=== PATIENT | male | born 1995 | race American Indian/Alaskan Native ===

== ENCOUNTER 2019-09-04 08:39 | Emergency (ER) | payer SELFPAY ==
--- NOTE | 2019-09-04 08:58 | Event Note ---
ED Screening Note ED Screening Note: flank pain hematuria yesterday never had before no dysuria no penile discharge no pain or edema in the testicles no PMHx allergy ibuprofen This initial assessment/diagnostic orders/clinical plan/treatment(s) is/are subject to change based on patients health status, clinical progression and re-assessment by fellow clinical providers in the ED. Further treatment and workup at subsequent clinical providers discretion. Patient/guardian urged not to elope from the ED as their condition may be serious if not clinically assessed and managed. Initial orders include: labs, UA
[2019-09-04 09:26] LABS: Hemoglobin 15.1 gm/dl (11.8-15.2); Mean Corpuscular HGB Conc 34 % (32-34); Mean Corpuscular Volume 92 fl (84-94); Red Blood Count 4.88 M/mm3 (3.65-5.03); Red Cell Distribution Width 13.2 % (13.2-15.2)
[2019-09-04 09:29] LABS: Platelet Count 82 K/mm3 (140-440)
[2019-09-04 09:35] LABS: Eosinophils # (Auto) 0.3 K/mm3 (0.0-0.4); Eosinophils % (Auto) 6.5 % (0.0-4.3); Monocytes # (Auto) 0.4 K/mm3 (0.0-0.8); Monocytes % (Auto) 9.4 % (0.0-7.3)
[2019-09-04 09:46] LABS: Alanine Aminotransferase 6 units/L (7-56); Albumin 4.6 g/dL (3.9-5); BUN/Creatinine Ratio 12; Blood Urea Nitrogen 13 mg/dL (9-20); Calcium 9.6 mg/dL (8.4-10.2); Hemolysis Index 9
[2019-09-04] MEDS ORDERED: MORPHINE 4 MG/1 ML INJ IV ONE (09:51)
[2019-09-04] MEDS ORDERED: SODIUM CHLORIDE 0.9% 1000 ML 1,000 ML IV ONE (09:51)
[2019-09-04] MEDS ORDERED: ACETAMINOPHEN 500 MG TAB PO ONE (09:52)
--- NOTE | 2019-09-04 09:53 | Emergency Department Report ---
ED General Adult HPI - General Chief complaint: Urogenital-Male Stated complaint: BLOOD IN URINE Time Seen by Provider: 09/04/19 09:35 Source: patient, family, RN notes reviewed Mode of arrival: Ambulatory Limitations: No Limitations - History of Present Illness Initial comments: This is a pleasant 24-year-old gentleman. This patient is not known to this provider previously. He does not have a primary care doctor. He does not have chronic medical conditions that he is aware of. He presents to the emergency room with a few days of suprapubic and left lower quadrant abdominal pain, and painless hematuria. Symptoms do not radiate anywhere, abdominal pain is sharp, achy, increases with palpation and decreases with rest. There is no headache, n joseluis pain, chest pain, right-sided abdominal pain, testicular pain, phallic pain or shortness of breath. He smokes cigarettes, but he denies travel, and exposure to blue dye. -: Gradual Location: abdomen Quality: other Consistency: other Improves with: other Worsens with: other - Related Data Previous Rx's Medication Instructions Recorded Last Taken Type Acetaminophen [Non-Aspirin Extra 500 mg PO Q6HR PRN #30 tablet 09/04/19 Unknown Rx Strength] Ondansetron [Zofran Odt] 4 mg PO Q8HR PRN #20 tab.rapdis 09/04/19 Unknown Rx Allergies Allergy/AdvReac Type Severity Reaction Status Date / Time ibuprofen Allergy Anaphylaxis Verified 09/04/19 08:44 ED Review of Systems ROS: Stated complaint: BLOOD IN URINE Other details as noted in HPI Constitutional: denies: fever Eyes: denies: eye discharge ENT: denies: congestion Respiratory: denies: wheezing Cardiovascular: denies: syncope Gastrointestinal: abdominal pain. denies: nausea, vomiting Genitourinary: hematuria. denies: urgency, dysuria, frequency, testicular pain, testicular mass Musculoskeletal: denies: back pain Skin: denies: lesions Neurological: denies: weakness Hematological/Lymphatic: denies: easy bleeding ED Past Medical Hx - Past Medical History Previous Medical History?: No - Surgical History Past Surgical History?: No - Social History Smoking Status: Never Smoker - Medications Home Medications: Home Medications Medication Instructions Recorded Confirmed Last Taken Type Acetaminophen [Non-Aspirin Extra 500 mg PO Q6HR PRN #30 tablet 09/04/19 Unknown Rx Strength] Ondansetron [Zofran Odt] 4 mg PO Q8HR PRN #20 tab.rapdis 09/04/19 Unknown Rx ED Physical Exam - General Limitations: No Limitations General appearance: alert, in no apparent distress - Head Head exam: Present: atraumatic, normocephalic - Eye Eye exam: Present: normal appearance, EOMI. Absent: nystagmus - ENT ENT exam: Present: normal exam, normal orophraynx, mucous membranes moist, normal external ear exam - Neck Neck exam: Present: normal inspection, full ROM. Absent: tenderness, meningismus - Respiratory Respiratory exam: Present: normal lung sounds bilaterally. Absent: respiratory distress, wheezes, rales, rhonchi, stridor, decreased breath sounds - Cardiovascular Cardiovascular Exam: Present: normal rhythm, bradycardia, normal heart sounds. Absent: systolic murmur, diastolic murmur, rubs, gallop - GI/Abdominal GI/Abdominal exam: Present: soft, tenderness (there is left lower quadrant tenderness. There is no rebound, guarding or peritoneal sign.), normal bowel sounds. Absent: distended, guarding, rebound, rigid, pulsatile mass - Rectal Rectal exam: Present: deferred - exam: Present: normal inspection, testicular tenderness, other (there is normal testicular lie. There is normal cremasteric reflex. There is no test icular tenderness. There is no testicular swelling). Absent: scrotal swelling External exam: Present: normal external exam, other (chaperoned by MARICHUY ARITA) - Extremities Exam Extremities exam: Present: normal inspection, full ROM, other (2+ pulses noted in the bilateral upper, lower extremities. There is no long bone tenderness. Musculoskeletal compartments are soft. The pelvis is stable.). Absent: pedal edema, joint swelling, calf tenderness - Back Exam Back exam: Present: normal inspection, full ROM. Absent: tenderness, CVA tenderness (R), CVA tenderness (L), paraspinal tenderness, vertebral tenderness - Neurological Exam Neurological exam: Present: alert, oriented X3, normal gait, other (there is no facial droop. The tongue is midline. Extraocular movements are intact bilaterally. Patient speaking in full complete sentences. Shoulder shrug is intact bilaterally. Hearing is grossly intact bilaterally. Visual acuity inta ct to finger counting and color perception at a close distance. 5/5 strength 4 extremities. Sensation intact to light touch in 4 extremities.). Absent: motor sensory deficit - Psychiatric Psychiatric exam: Present: normal affect, normal mood - Skin Skin exam: Present: warm, dry, intact, normal color. Absent: rash ED Course Vital Signs 09/04/19 09:56 Temperature 97.7 F Pulse Rate 53 L Respiratory 20 Rate Blood Pressure 116/46 Blood Pressure 116/46 [Left] O2 Sat by Pulse 100 Oximetry - Reevaluation(s) Reevaluation #1: 09/04/19 10:46 Differential diagnosis, including but not limited to: Renal colic, malignancy, infection, abscess Assessment and plan: 24-year-old gentleman with left lower quadrant pain, tenderness, hematuria, incidentally found to have thrombocytopenia. He is afebrile with reassuring vital signs. He is clinically well-appearing at this time. Screening laboratory studies are reviewed and appreciated. CT scan abdomen pelvis with and without contrast pending at this time. Reevaluation #2: 09/04/19 12:02 The patient is reassessed. He feels improved. He is eating [employer] fast food at the moment. He states his pain is resolved. He indicates he has attempted to quit smoking in the past, he is not interested in nicotine gum or nicotine supplements. He indicates that he is able to "go cold turkey." Discussed need to follow up with outpatient primary care doctor for thrombocytopenia. Minimal incidental leukopenia noted, this can also be followed up by primary care doctor. He also understands that he needs to follow up with a urologic sp ecialist. We discussed the need to follow-up to exclude genitourinary cancer, tumor, malignancy. He has endorsed understanding. ED Medical Decision Making - Lab Data Result diagrams: 09/04/19 09:04 09/04/19 09:04 Vital Signs 09/04/19 09:56 Temperature 97.7 F Pulse Rate 53 L Respiratory 20 Rate Blood Pressure 116/46 Blood Pressure 116/46 [Left] O2 Sat by Pulse 100 Oximetry Lab Results 09/04/19 09/04/19 09/04/19 Range/Units 09:04 09:04 09:35 WBC 3.8 L (4.5-11.0) K/mm3 RBC 4.88 (3.65-5.03) M/mm3 Hgb 15.1 (11.8-15.2) gm/dl Hct 45.0 (35.5-45.6) % MCV 92 (84-94) fl MCH 31 (28-32) pg MCHC 34 (32-34) % RDW 13.2 (13.2-15.2) % Plt Count 82 L (140-440) K/mm3 [place] % (Auto) 9.4 H (0.0-7.3) % Eos % (Auto) 6.5 H (0.0-4.3) % [place] # 0.4 (0.0-0.8) K/mm3 Eos # 0.3 (0.0-0.4) K/mm3 Baso # 0.0 (0.0-0.1) K/mm3 Seg Neutrophils % [employer] Seg Neutrophils # 1.1 L (1.8-7.7) K/mm3 PT (12.2-14.9) Sec. INR (0.87-1.13) APTT (24.2-36.6) Sec. Sodium 142 (137-145) mmol/L Potassium 4.0 (3.6-5.0) mmol/L Chloride 103.0 (98-107) mmol/L Carbon Dioxide 25 (22-30) mmol/L Anion Gap 18 mmol/L BUN 13 (9-20) mg/dL Creatinine 1.1 (0.8-1.5) mg/dL Estimated GFR > 60 ml/min BUN/Creatinine Ratio 12 % Glucose 87 (75-100) mg/dL Calcium 9.6 (8.4-10.2) mg/dL Total Bilirubin 0.20 (0.1-1.2) mg/dL AST 12 (5-40) units/L ALT 6 L (7-56) units/L Alkaline Phosphatase 82 (35-129) units/L Total Creatine Kinase 110 (55-170) units/L Total Protein 7.2 (6.3-8.2) g/dL Albumin 4.6 (3.9-5) g/dL Albumin/Globulin Ratio 1.8 % Urine Bilirubin Neg (Negative) Urine RBC (Auto) 12.0 (0.0-6.0) /HPF U Epithel Cells (Auto) < 1.0 (0-13.0) /HPF 09/04/ Range/Units Unknown WBC (4.5-11.0) K/mm3 RBC (3.65-5.03) M/mm3 Hgb (11.8-15.2) gm/dl Hct (35.5-45.6) % MCV (84-94) fl MCH (28-32) pg MCHC (32-34) % RDW (13.2-15.2) % Plt Count (140-440) K/mm3 [place] % (Auto) (0.0-7.3) % Eos % (Auto) (0.0-4.3) % [place] # (0.0-0.8) K/mm3 Eos # (0.0-0.4) K/mm3 Baso # (0.0-0.1) K/mm3 Seg Neutrophils % Seg Neutrophils # (1.8-7.7) K/mm3 PT 14.3 (12.2-14.9) Sec. INR 1.12 (0.87-1.13) APTT 34.1 (24.2-36.6) Sec. Sodium (137-145) mmol/L Potassium (3.6-5.0) mmol/L Chloride (98-107) mmol/L Carbon Dioxide (22-30) mmol/L Anion Gap mmol/L BUN (9-20) mg/dL Creatinine (0.8-1.5) mg/dL Estimated GFR ml/min BUN/Creatinine Ratio % Glucose (75-100) mg/dL Calcium (8.4-10.2) mg/dL Total Bilirubin (0.1-1.2) mg/dL AST (5-40) units/L ALT (7-56) units/L Alkaline Phosphatase (35-129) units/L Total Creatine Kinase (55-170) units/L Total Protein (6.3-8.2) g/dL Albumin (3.9-5) g/dL Albumin/Globulin Ratio % Urine Bilirubin (Negative) Urine RBC (Auto) (0.0-6.0) /HPF U Epithel Cells (Auto) (0-13.0) /HPF - Radiology Data Radiology results: pending interpreted by me: Print Report Referring Physician: ROCCO MCKEON Patient Name: ELIAS SHI Date of : 1995 Sex: Male Report Date: 2019-09-04 Report Status: Finalized Findings [facility] [address] [place] [address] Cat Scan Report Signed Patient: ELIAS SHI MR#: [id number] 58 : 1995 Acct:[id number] Age/Sex: 24 / M ADM Date: 09/04/19 Loc: ED Attending Dr: Ordering Physician: ROCCO MCKEON MD Date of Service: 09/04/19 Procedure(s): CT abdomen pelvis wo/w con Accession Number(s): [id number] cc: ROCCO MCKEON MD CT of the abdomen and pelvis without and with contrast INDICATION: Material COMPARISON: None FINDINGS: The initial precontrast images show no renal or ureteral calculi. No stone fragments seen in the bladder. Postcontrast images show clear lung bases. The spleen, pancreas, adrenal glands and kidneys show no significant abnormalities. Liver shows mild periportal edema which is nonspecific. No definite gallbladder or biliary tree abnormality. No fluid or adenopathy in the upper abdomen. CT of the pelvis shows no pelvic or inguinal adenopathy. Appendix is not definitely seen. No gross bladder abnormality. Prostate is not enlarged. No significant skeletal lesion. IMPRESSION: Negative study. Automated exposure control was utilized to diminish radiation dose. Signer Name: Temo Bragg MD Signed: 09/04/2019 11:21 AM Workstation Name: [id number] Transcribed By: THELMA Dictated By: Temo Bragg MD Electronically Authenticated By: Temo Bragg MD Signed Date/Time: 09/04/19 1121 Critical care attestation.: If time is entered above; I have spent that time in minutes in the direct care of this critically ill patient, excluding procedure time. ED Disposition Clinical Impression: Hematuria, Thrombocytopenia Disposition: DC-01 TO HOME OR SELFCARE Is pt being admited?: No Does the pt Need Aspirin: No Condition: Stable Additional Instructions: Follow up with urology specialist within the next 2-3 weeks for further evaluation of painless blood in urine/hematuria. Not following up is recommended may result an undiagnosed cancer, tumor, malignancy. Recommend that patient stopped smoking as soon as possible. Tobacco consumption increases lifetime risk for cancer and tumor and malignancy. Recommend following up with an outpatient primary care doctor for incidental low platelet count. Alternatively, the patient may follow-up with a local civil design specialist, such as Dr. Vallejo, for low platelet count. Recommend following up for low platelet count within the next 3-4 weeks. Avoid consumption of Motrin, ibuprofen, Naprosyn, Aleve, and avoid contact sports and strenuous physical activity. Return to emergency room right away with new, worsened, different symptoms, or symptoms not present on initial emergency room evaluation. Referrals: PRIMARY CARE, [Primary Care Provider] - 3-5 Days REHAN VALLEJO MD [Staff Physician] - 3-5 Days [facility] [place] [Provider Group] - 3-5 Days [facility] [Provider Group] - 3-[address] [facility] [Provider Group] - 3-5 Days
[2019-09-04 10:03] VITALS: BP 116/46
[2019-09-04 10:35] LABS: INR 1.12 (0.87-1.13)
[2019-09-04 10:36] LABS: Partial Thromboplastin Time 34.1 Sec. (24.2-36.6)
[2019-09-04 10:39] LABS: Bilirubin,Urine NEG (Negative); Blood,Urine MOD (Negative); Color,Urine Yellow (Yellow); Mucus,Urine 2+ /HPF; Protein,Urine <15 mg/dL mg/dL (Negative); Urobilinogen,Urine < 2.0 mg/dL (<2.0)
[2019-09-04 11:10] LABS: Basophils % (Manual) 0 % (0.0-1.8); Large Platelets Few; Platelet Estimate Consistent w Auto; RBC Morphology Normal; Total Cells Counted 100
--- NOTE | 2019-09-04 11:25 | Cat Scan Report ---
CT of the abdomen and pelvis without and with contrast INDICATION: Material COMPARISON: None FINDINGS: The initial precontrast images show no renal or ureteral calculi. No stone fragments seen i n the bladder. Postcontrast images show clear lung bases. The spleen, pancreas, adrenal glands and ki dneys show no significant abnormalities. Liver shows mild periportal edema which is nonspecific. No d efinite gallbladder or biliary tree abnormality. No fluid or adenopathy in the upper abdomen. CT of the pelvis shows no pelvic or inguinal adenopathy. Appendix is not definitely seen. No gross bl adder abnormality. Prostate is not enlarged. No significant skeletal lesion. IMPRESSION: Negative study. Automated exposure control was utilized to diminish radiation dose. Signer Name: Temo Bragg MD Signed: 09/04/2019 11:21 AM Workstation Name: [id number]
== END 2019-09-04 12:37 | disposition home or self-care (01) ==
LOC: ED 08:39
DX: D69.6 Thrombocytopenia, unspecified (principal); R31.9 Hematuria, unspecified
CPT/HCPCS: 36415; 74178; 80053; 81001; 82550; 83735; 85007; 85025; 85610; 85730; 87086; 96374; 99284; J2270; J7030; Q9967